=== PATIENT | female | born 1975 | race Caucasian/White ===

== ENCOUNTER 2016-10-25 15:10 | Outpatient (CLI) | payer MEDICAID ==
[~2016-10-25 15:10] MED LIST: ALBUTEROL200 PUFFS/ IH; AXERT PO; BACTRIM 400 MG-1 TAB PO; CEPHALEXIN500 M3 PO; CIPROFLOXACIN500 MG PO; CLARITIN 10MG T10 MG PO; CLARITIN10 MG PO; HYDROXYZINE HCL25 MG PO; KEFLEX 500MG.500 MG PO; PEPCID 20MG TAB20 MG PO; PERCOCET 5/3251 EACH PO; PHENERGAN 25MG.25 M1 PO; PHENERGAN25 M3 PO; PREDNISONE 20MG20 MG PO; PYRIDIUM 200MG200 MG PO; SUDAFED30 MG PO; VENTOLIN H0.09 MG/Ac IH; VOLTAREN75 MG PO; WESTCORT 0.2% C15 GM TP; ZYRTEC 10MG TAB10 MG PO; ZYRTEC10 M3 PO
[2016-10-25 15:35] VITALS: BP 118/79
[2016-10-25 16:00] VITALS: BP 117/75
[2016-10-25 16:20] VITALS: BP 115/74
[2016-10-25 16:40] VITALS: BP 123/80
[2016-12-18] MEDS ORDERED: ZITHROMAX Z PA250 MG PO (20:32)
[2016-12-18] MEDS ORDERED: MEDROL 4MG. DOSE4 MG PO (20:32)
[2016-12-18] MEDS ORDERED: FLONASE 50 MCG16 GM (20:32)
== END 2016-10-25 16:42 | disposition home or self-care (01) ==
LOC: COP 15:10
DX: G43.C1 Periodic headache syndromes in child or adult, intractable (principal)
CPT/HCPCS: J0595; J2405

== ENCOUNTER → 2017-07-07 | Outpatient (CLI) | payer MEDICAID ==
[~2017-07-07] MED LIST changes: +FLONASE 50 MCG16 GM; +GABAPENTIN300 M1 PO; +MEDROL 4MG. DOSE4 MG PO; +PERCOCET 325 MG1 TA4 PO; +ZITHROMAX Z PA250 MG PO
[2017-07-07 21:16] LABS: AMPHETAMINES/METAMPHETAMINES NEGATIVE ng/mL (<1000)
[2017-07-14 05:37] LABS: Opiates Negative (Cutoff=100)
== END ==
LOC: LAB 17:16
PROVIDERS: Emergency Medicine
DX: Z79.899 Other long term (current) drug therapy (principal)